=== PATIENT | male | born 1955 | race Caucasian/White ===

== ENCOUNTER 2022-11-25 08:38 | Outpatient (OUT) | payer MEDICARE, BC, SELFPAY | END 2022-11-25 08:39 | disposition home or self-care (01) | LOC: INF 08:38 | PROVIDERS: PCP Family Medicine; Visit Provider Internal Medicine Hematology & Oncology | DX: C67.9 Malignant neoplasm of bladder, unspecified (principal); D50.9 Iron deficiency anemia, unspecified; D75.839 Thrombocytosis, unspecified; D72.829 Elevated white blood cell count, unspecified | CPT/HCPCS: G0463 ==

== ENCOUNTER 2022-12-02 07:51 | Outpatient (OUT) | payer MEDICARE, BC, SELFPAY ==
[2022-12-02 10:59] LABS: Basophils Absolute Auto 0.1 10^3/uL (0.0-0.1); Basophils Percent Auto 0.4 % (0.2-2.0); Eosinophils Absolute Auto 0.3 10^3/uL (0.0-0.7); Eosinophils Percent Auto 2.4 % (0.9-7.0); Hematocrit 28.3 % (42.0-54.0); Hemoglobin 8.7 g/dL (14.0-18.0); Immature Granulocytes Abs Auto 0.22 10^3/uL (0.00-0.03); Immature Granulocytes Pct Auto 1.6 % (0.0-0.5); Lymphocytes Absolute Auto 0.9 10^3/uL (1.2-3.8); Lymphocytes Percent Auto 6.4 % (20.5-60.0); Mean Corpuscular HGB Conc 30.7 g/dL (29.9-35.2); Mean Corpuscular Hemoglobin 29.1 pg (25.9-34.0); Mean Corpuscular Volume 94.6 fL (80.0-94.0); Mean Platelet Volume 9.3 fL (9.5-13.5); Monocytes Absolute Auto 0.9 10^3/uL (0.3-0.8); Monocytes Percent Auto 6.5 % (1.7-12.0); Neutrophils Absolute Auto 11.6 10^3/uL (1.4-6.5); Neutrophils Percent Auto 82.7 % (43.0-75.0); Platelet Count 716 10^3/uL (150-450); Red Blood Count 2.99 10^6/uL (4.70-6.10); Red Cell Distribution Width 15.3 % (11.0-15.0)
[2022-12-02 11:29] LABS: Alanine Aminotransferase 53 U/L (16-63); Albumin Globulin Ratio 0.4; Albumin Level 2.1 g/dL (3.4-5.0); Alkaline Phosphatase 134 U/L (46-116); Anion Gap 16.4; Aspartate Amino Transferase 42 U/L (15-37); BUN Creatinine Ratio 13.4; Bilirubin Total 0.5 mg/dL (0.2-1.0); Carbon Dioxide 24.6 mmol/L (21.0-32.0); Chloride 97 mmol/L (98-107); Estimated GFR (African America 14 (>=60); Estimated GFR (Non-African Ame 11 (>=60); Globulin 5.2 g/dL; Glucose 136 mg/dL (74-106); Sodium 134 mmol/L (136-145); Total Protein 7.3 g/dL (6.4-8.2)
[2022-12-02 11:57] LABS: Free T4 0.87 ng/dL (0.76-1.46)
[2022-12-03 06:09] LABS: HBsAg Screen Negative (Negative); Hep B Core Ab, Tot Negative (Negative); Hep B Surface Ab Non Reactive (.)
[2022-12-03 14:49] VITALS: BMI 21.9
== END 2022-12-02 07:52 | disposition home or self-care (01) ==
LOC: INF 07:52
PROVIDERS: PCP Family Medicine; Visit Provider Internal Medicine Hematology & Oncology
DX: D72.829 Elevated white blood cell count, unspecified (principal); D75.839 Thrombocytosis, unspecified; D50.9 Iron deficiency anemia, unspecified; C67.9 Malignant neoplasm of bladder, unspecified
CPT/HCPCS: 36415; 80053; 84439; 84443; 85025; 86704; 86706; 87340

== ENCOUNTER 2022-12-03 09:59 | Outpatient (OUT) | payer MEDICARE, BC, SELFPAY | END 2022-12-03 10:00 | disposition home or self-care (01) | LOC: PST 10:01 | PROVIDERS: PCP Family Medicine | DX: Z01.818 Encounter for other preprocedural examination (principal); C34.90 Malignant neoplasm of unspecified part of unspecified bronchus or lung; Z79.01 Long term (current) use of anticoagulants | CPT/HCPCS: 80048; 85025; 85610; 85730 ==

== ENCOUNTER 2022-12-03 10:05 | Outpatient (OUT) | payer MEDICARE, BC, SELFPAY ==
--- NOTE | 2022-12-03 10:29 | XR_ITS ---
The [address] [address] Patient Name: JUDI RUFFIN MRN: [id number] date: 1955 Sex: M Assigned Patient Location: LAB Current Patient Location: LAB Accession/Order Number: [id number] Exam Date: 12/03/2022 10:35 Report Date: 12/03/2022 10:57 At the request of: CHRISS ONEILL Procedure: XR chest 2V EXAMINATION: XR chest 2V HISTORY: Cough, COPD , chronic shortness breath, lung cancer COMPARISON: XR chest 09/26/2022, CTA chest 11/17/2022 FINDINGS: LUNGS: Innumerable nodular opacities and large confluent areas throughout the lungs, greatest within the right lung base. VASCULATURE: No increased pulmonary vasculature. PLEURA: No pneumothorax or visible pleural effusion. CARDIAC: No cardiomegaly or cardiac silhouette abnormality. MEDIASTINUM: Prior sternotomy. No abnormal widening. BONES: No fracture or visible bone lesion. OTHER: Right jugular central venous catheter with tip at cavoatrial junction. IMPRESSION: 1. Extensive metastatic disease throughout the lungs. This is significantly increased compared to 09/26/2022. Stable to slight increase compared 11/17/2022 CTA chest (comparison is very limited due to differences in technique). 2. Overlying new, acute infiltrates cannot be excluded. Electronically authenticated by: MAIRA GOODWIN Date: 12/03/2022 10:57
== END 2022-12-03 10:06 | disposition home or self-care (01) ==
LOC: LAB 10:07
PROVIDERS: PCP Family Medicine; Visit Provider Internal Medicine Hematology & Oncology
DX: D72.829 Elevated white blood cell count, unspecified (principal); D75.839 Thrombocytosis, unspecified; D64.9 Anemia, unspecified; D50.9 Iron deficiency anemia, unspecified; C67.9 Malignant neoplasm of bladder, unspecified; C34.90 Malignant neoplasm of unspecified part of unspecified bronchus or lung
CPT/HCPCS: 71046

== ENCOUNTER 2022-12-05 07:38 | Day surgery (SDC) | payer MEDICARE, BC, SELFPAY ==
[2022-12-03 11:30] VITALS: BP 105/61; PULSE 98; RESP 20; TEMP 36.4; O2SAT 87; BMI 20.8
[2022-12-05 08:00] LABS: Anion Gap 11.4; BUN Creatinine Ratio 9.7; Calcium 8.5 mg/dL (8.5-10.1); Carbon Dioxide 30.3 mmol/L (21.0-32.0); Chloride 100 mmol/L (98-107); Estimated GFR (African America 19 (>=60); Estimated GFR (Non-African Ame 15 (>=60); Glucose 125 mg/dL (74-106); Potassium 4.7 mmol/L (3.5-5.1); Sodium 137 mmol/L (136-145)
[2022-12-05 08:11] VITALS: BMI 20.4
[2022-12-05 08:26] VITALS: BP 141/77; PULSE 97; RESP 20; TEMP 37.1; O2SAT 86
[2022-12-05] MEDS: 0.9 % SODIUM CHLORIDE 1,000 ML 75 ML IV (08:30)
[2022-12-05] MEDS: CEFAZOLIN SODIUM/DEXTROSE,ISO 2 GM/50 ML PIGGYBACK IV (08:31)
[2022-12-05] MEDS: HEPARIN SODIUM (PORCINE) PF LOCK FLUSH 500 UNIT/5 ML SYRINGE INJ (09:26)
[2022-12-05] MEDS: LIDOCAINE HCL 1%-EPINEPHRINE 1:100,000 10 ML MDV INJ (09:27)
--- NOTE | 2022-12-05 09:34 | XR_ITS ---
The [address] [address] Patient Name: JUDI RUFFIN MRN: [id number] date: 1955 Sex: M Assigned Patient Location: [facility] Current Patient Location: [facility] Accession/Order Number: [id number] Exam Date: 12/05/2022 09:45 Report Date: 12/05/2022 10:05 At the request of: AURA GOMEZ Procedure: XR chest 1V EXAMINATION: XR chest 1V HISTORY: port placement COMPARISON: XR chest 12/03/2022 FINDINGS: LUNGS: Innumerable nodules and confluent opacities throughout the lungs. VASCULATURE: No increased pulmonary vasculature. PLEURA: No pneumothorax, effusion, or pleural thickening. CARDIAC: No cardiomegaly or cardiac silhouette abnormality. MEDIASTINUM: No visible mass or adenopathy. BONES: No fracture or visible bone lesion. OTHER: Left Port-A-Cath placement with distal tip in superior vena cava. Stable right jugular central venous catheter. IMPRESSION: 1. No acute abnormality following left Port-A-Cath placement. 2. Diffuse bilateral pulmonary metastasis; not appreciably changed. Electronically authenticated by: MAIRA GOODWIN Date: 12/05/2022 10:05
[2022-12-05 09:38] VITALS: BP 132/71; PULSE 102; RESP 22; O2SAT 88
[2022-12-05 09:53] VITALS: BP 131/66; PULSE 92; RESP 20; O2SAT 85
--- NOTE | 2022-12-05 10:07 | PM.GSPRC ---
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 He has been recommended to undergo chemotherapy and therefore port placement was requested per medical oncology. The risks benefits options and potential complications of the procedure were discussed in detail with him and he agreed to proceed and consent was signed. Pre-op diagnosis: lung CA, need for long-term IV access Post-op diagnosis: same Procedure: port placement with fluoroscopy Anesthesia: MAC Surgeon: Samuel Bowie Procedure Summary: The patient was brought to the operating room and placed in the supine position. Under MAC the chest and neck was prepped and draped in usual sterile fashion. Patient had received IV antibiotics preoperatively. The patient was then placed in Trendelenburg position. The left lateral infraclavicular region was infiltrated with one percent lidocaine with epinephrine. The left subclavian vein was then accessed without difficulty. The guidewire was placed through the access needle and advanced into the superior vena cava under fluoroscopic guidance. Needle was withdrawn. A site on the right chest was then infiltrated with local anesthesia. A transverse incision was made sharply. The subcutaneous pocket for the port reservoir wasn't treated with electrocautery and blunt dissection. The port reservoir was then placed into this pocket and sutured to the underlying tissue with 3-0 Vicryl. Small incision was then made at the wire exit site. Using the tunneling device the catheter was brought from the chest incision out through the wire exit site. The catheter was then cut to appropriate length. The dilator and tear-away sheath were then placed over the guidewire advanced without difficulty. The guidewire was removed. The dilator was then also removed with the catheter placed within the sheath this sheath was gradually withdrawn with the catheter maintaining proper position. The port was then accessed and good blood return was noted. Fluoroscopy showed the catheter to be in good position. The port was then flushed with heparinized saline. The chest incision was then closed with interrupted subcutaneous sutures of 3-0 Vicryl and the skin was closed with subcuticular sutures of 4-0 Vicryl. The small incision at the wire exit site was also closed with 4-0 Vicryl. Sterile dressings were applied. The patient tolerated the procedure well and was transferred to the recovery area in stable condition where a chest x-ray will be obtained. Estimated blood loss (mL): 3 Specimens: none Complications: No
[2022-12-05 10:08] VITALS: BP 134/69; PULSE 98; RESP 22; O2SAT 85
[2022-12-05 10:40] VITALS: BP 138/78; PULSE 98; RESP 22; O2SAT 88
== END 2022-12-05 10:58 | disposition home or self-care (01) ==
PROVIDERS: Anesthesiology; PCP Family Medicine; Visit Provider Surgery
PROC: (CPT 36561; principal; 2022-12-05 08:30)
DX: C34.90 Malignant neoplasm of unspecified part of unspecified bronchus or lung (principal); Z79.82 Long term (current) use of aspirin; Z79.890 Hormone replacement therapy; Z79.899 Other long term (current) drug therapy; Z79.02 Long term (current) use of antithrombotics/antiplatelets; M19.90 Unspecified osteoarthritis, unspecified site; I10 Essential (primary) hypertension; E78.00 Pure hypercholesterolemia, unspecified; E07.9 Disorder of thyroid, unspecified; Z94.0 Kidney transplant status; Z94.83 Pancreas transplant status; Z95.1 Presence of aortocoronary bypass graft; Z85.51 Personal history of malignant neoplasm of bladder; E10.9 Type 1 diabetes mellitus without complications; Z95.5 Presence of coronary angioplasty implant and graft
CPT/HCPCS: 36561; 36415; 71045; 76000; 80048; C1778

== ENCOUNTER 2022-12-08 08:59 | Outpatient (OUT) | payer MEDICARE, BC, SELFPAY | END 2022-12-08 09:00 | disposition home or self-care (01) | LOC: INF 09:01 → HEMC 12-09 16:15 | PROVIDERS: PCP Family Medicine; Visit Provider Internal Medicine Hematology & Oncology | DX: Z53.9 Procedure and treatment not carried out, unspecified reason (principal) ==

== ENCOUNTER 2022-12-12 09:00 | Outpatient (RCR) | payer MEDICARE, BC, SELFPAY ==
--- NOTE | 2022-12-08 10:24 | PC.NURSE ---
0904: Pt. to [facility] via w/c accompanied by . Provided education to patient and patient's regarding chemotherapy/immunotherapy. Informed consent reviewed and questions addressed. Consent obtained. Reviewed the importance of good nutrition and hydration throughout therapy and what to do if problems or concerns arise. Emphasized the importance of monitoring pt. temp. and to call oncology on-call if temp. >100.4 F. Both relayed understanding. 1000: Teaching complete. Questions addressed. Pt. taken to Dr. Mayorga's office for scheduled appointment via w/c accompanied by .
[2022-12-10 09:00] VITALS: BP 115/69; PULSE 97; RESP 24; TEMP 37.2; O2SAT 87
[2022-12-10 09:33] LABS: Hematocrit 25.3 % (42.0-54.0); Hemoglobin 7.7 g/dL (14.0-18.0); Mean Corpuscular HGB Conc 30.4 g/dL (29.9-35.2); Mean Corpuscular Hemoglobin 28.6 pg (25.9-34.0); Mean Corpuscular Volume 94.1 fL (80.0-94.0); Mean Platelet Volume 9.3 fL (9.5-13.5); Platelet Count 645 10^3/uL (150-450); Red Blood Count 2.69 10^6/uL (4.70-6.10); Red Cell Distribution Width 15.7 % (11.0-15.0); White Blood Count 14.8 10^3/uL (4.0-11.0)
[2022-12-10 10:02] LABS: Eosinophils Absolute Manual 0.29 10^3/uL (0.00-0.70); Hypersegmented Neutrophils 1+; Lymphocytes Absolute Manual 1.33 10^3/uL (1.20-3.80); Monocytes Absolute Manual 0.44 10^3/uL (0.30-0.80); Segmented Neut Absolute Manual 12.72 10^3/uL (1.4-6.5)
[2022-12-10 10:03] LABS: Polychromasia 1+
[2022-12-10 10:04] LABS: Anisocytosis 1+
[2022-12-10 10:10] LABS: Alanine Aminotransferase 18 U/L (16-63); Albumin Globulin Ratio 0.4; Albumin Level 1.8 g/dL (3.4-5.0); Alkaline Phosphatase 189 U/L (46-116); Anion Gap 13.3; Aspartate Amino Transferase 42 U/L (15-37); Bilirubin Total 0.4 mg/dL (0.2-1.0); Calcium 8.4 mg/dL (8.5-10.1); Carbon Dioxide 29.6 mmol/L (21.0-32.0); Chloride 100 mmol/L (98-107); Estimated GFR (African America 18 (>=60); Estimated GFR (Non-African Ame 15 (>=60); Globulin 4.8 g/dL; Glucose 129 mg/dL (74-106); Potassium 4.9 mmol/L (3.5-5.1); Sodium 138 mmol/L (136-145); Total Protein 6.6 g/dL (6.4-8.2)
[2022-12-10] MEDS: DEXAMETHASONE SODIUM PHOSPHATE 10 MG in 0.9 % SODIUM CHLORIDE 100 ML 303 MG IV (10:23)
[2022-12-10 10:56] VITALS: BP 133/78; PULSE 97; RESP 24; TEMP 37.2; O2SAT 87
--- NOTE | 2022-12-10 11:04 | PC.NURSE ---
0900: Pt. to [facility] via w/c accompanied by . Pt. weight obtained. Pt. very weak and dyspneic with minimal exertion. Pt. with portable O2 intact at 5L nasal cannula. Assisted pt. to recliner. O2 87%. Rest of VSS. Using sterile technique, #19 gauge Donald needle used to access left ant. chest port. Flushes easily and able to aspirate blood easily for lab draw. Covered with Opsite dressing. Pt. tolerated with no c/o. IV 0.9%Ns initiated at KVO. Pt. given Ensure protein shake. 1017: Lab results called to Dr. Cardona. New orders obtained. Gives order to proceed with Pacev and Keytruda infusion. Pharmacy called and instructed to mix meds. 1023: IV Decadron initiated at this time. 1045: Decadron complete. Pt. without c/o. Denies needs. O2 maintained at 5L n/c. Awaiting Padcev from pharmacy.
--- NOTE | 2022-12-10 11:22 | PC.NURSE ---
Resting quietly with eyes closed. remains at bedside. Appears to be without s&s of distress.
--- NOTE | 2022-12-10 11:34 | PC.NURSE ---
Addendum entered by Quoc Koch 12/11/22 10:50: Dual verification performed with NASH Quiroz prior to administration. Original Note: 1132: IV Padcev initiated at this time. Instructed pt to relay any c/o increased dyspnea, itchy or scratchy throat, numbness or tingling or any other adverse reactions. Pt. and pt.'s both relay understanding.
[2022-12-10 11:38] VITALS: BP 138/80; PULSE 95; RESP 22; TEMP 37.1; O2SAT 85
--- NOTE | 2022-12-10 12:05 | PC.NURSE ---
Padcev infusion completed. Pt. tolerated without s&s of adverse reaction. VSS.
[2022-12-10] MEDS: PEMBROLIZUMAB 200 MG in 0.9 % SODIUM CHLORIDE 100 ML 216 MG IV (12:46)
--- NOTE | 2022-12-10 12:59 | PC.NURSE ---
Addendum entered by Quoc Koch 12/11/22 10:51: Dual verification performed with Iain Vogel RN prior to administration. Original Note: IV Keytruda initiated at this time. Instructed to pt. to inform this RN if any s&s of adverse reaction.
[2022-12-10 13:20] VITALS: BP 154/89; PULSE 94; RESP 20; TEMP 36.9; O2SAT 85
--- NOTE | 2022-12-10 13:37 | PC.NURSE ---
1320: IV Keytruda complete. Pt. feel slightly diaphoretic. VSS. Denies feeling bad . IV bolus of NS initiated at this time to flush line and provide hydration.
[2022-12-10] MEDS: HEPARIN SODIUM (PORCINE) PF LOCK FLUSH 500 UNIT/5 ML SYRINGE IV (13:45)
--- NOTE | 2022-12-10 15:12 | PC.NURSE ---
1345: Pt. relays feeling fine . Denies c/o pain, n/v or dyspnea. VSS. Port flushed with saline and heparin. Port de-accessed. Pt. tolerates without c/o. 1355: Pt. reminded of phone number to call after hours if any adverse reaction or symptoms occur at home. Reminded to keep close eye on temp. Both patient and relay understanding. Pt. taken to car via w/c and d/c'd to home with .
[2022-12-12 09:05] VITALS: BP 104/67; PULSE 97; RESP 22; TEMP 36.4; O2SAT 88
[2022-12-12] MEDS: 0.9 % SODIUM CHLORIDE 250 ML IV (09:24)
[2022-12-12 09:38] VITALS: BP 104/67; PULSE 97; RESP 22; TEMP 36.4; O2SAT 88
[2022-12-12 09:55] VITALS: BP 100/63; PULSE 87; RESP 22; TEMP 36.5; O2SAT 88
[2022-12-12 10:55] VITALS: BP 133/78; PULSE 86; PULSE 88; RESP 20; RESP 22; TEMP 36.6; O2SAT 88; O2SAT 91
[2022-12-12] MEDS: HEPARIN SODIUM (PORCINE) PF LOCK FLUSH 500 UNIT/5 ML SYRINGE IV (12:25)
== END 2022-12-12 23:59 | disposition home or self-care (01) ==
LOC: HEMC 09:00
PROVIDERS: PCP Family Medicine; Visit Provider Internal Medicine Hematology & Oncology
DX: D50.9 Iron deficiency anemia, unspecified (principal); C78.01 Secondary malignant neoplasm of right lung; C78.02 Secondary malignant neoplasm of left lung; D72.829 Elevated white blood cell count, unspecified; D75.839 Thrombocytosis, unspecified; C67.9 Malignant neoplasm of bladder, unspecified; Z51.11 Encounter for antineoplastic chemotherapy
CPT/HCPCS: 36415; 36430; 36591; 80053; 84443; 85007; 85025; 85027; 86850; 86900; 86901; 86920; 96374; 96375; 96409; 96411; 96413; 96417; J1100; J9177; J9271; P9016

== ENCOUNTER 2022-12-16 07:38 | Outpatient (RCR) | payer MEDICARE, BC, SELFPAY | END 2022-12-19 23:59 | disposition home or self-care (01) | LOC: HEMC 07:38 | PROVIDERS: PCP Family Medicine; Visit Provider Internal Medicine Hematology & Oncology | DX: C67.9 Malignant neoplasm of bladder, unspecified (principal); C78.02 Secondary malignant neoplasm of left lung; C78.01 Secondary malignant neoplasm of right lung | CPT/HCPCS: G0463 ==

== ENCOUNTER 2022-12-16 09:30 | Outpatient (OUT) | payer MEDICARE, BC, SELFPAY ==
[2022-12-16 11:14] LABS: Basophils Percent Auto 0.1 % (0.2-2.0); Eosinophils Absolute Auto 0.2 10^3/uL (0.0-0.7); Eosinophils Percent Auto 1.3 % (0.9-7.0); Hematocrit 30.3 % (42.0-54.0); Hemoglobin 9.2 g/dL (14.0-18.0); Immature Granulocytes Pct Auto 1.3 % (0.0-0.5); Lymphocytes Absolute Auto 0.7 10^3/uL (1.2-3.8); Lymphocytes Percent Auto 4.7 % (20.5-60.0); Mean Corpuscular HGB Conc 30.4 g/dL (29.9-35.2); Mean Corpuscular Hemoglobin 28.2 pg (25.9-34.0); Mean Corpuscular Volume 92.9 fL (80.0-94.0); Mean Platelet Volume 10.2 fL (9.5-13.5); Monocytes Absolute Auto 0.9 10^3/uL (0.3-0.8); Monocytes Percent Auto 5.7 % (1.7-12.0); Neutrophils Absolute Auto 13.7 10^3/uL (1.4-6.5); Neutrophils Percent Auto 86.9 % (43.0-75.0); Platelet Count 593 10^3/uL (150-450); Red Blood Count 3.26 10^6/uL (4.70-6.10); Red Cell Distribution Width 20.2 % (11.0-15.0); White Blood Count 15.7 10^3/uL (4.0-11.0)
[2022-12-16 11:41] LABS: Alanine Aminotransferase 65 U/L (16-63); Albumin Globulin Ratio 0.4; Albumin Level 1.9 g/dL (3.4-5.0); Alkaline Phosphatase 197 U/L (46-116); Aspartate Amino Transferase 58 U/L (15-37); BUN Creatinine Ratio 17.2; Bilirubin Total 0.4 mg/dL (0.2-1.0); Calcium 8.1 mg/dL (8.5-10.1); Carbon Dioxide 26.8 mmol/L (21.0-32.0); Chloride 101 mmol/L (98-107); Estimated GFR (African America 11 (>=60); Estimated GFR (Non-African Ame 9 (>=60); Globulin 4.6 g/dL; Glucose 142 mg/dL (74-106); Potassium 4.8 mmol/L (3.5-5.1); Sodium 139 mmol/L (136-145); Total Protein 6.5 g/dL (6.4-8.2)
== END 2022-12-16 09:31 | disposition home or self-care (01) ==
LOC: INF 12-31 12:48 → HEMC 12-31 12:50
PROVIDERS: PCP Family Medicine; Visit Provider Internal Medicine Hematology & Oncology
DX: C78.01 Secondary malignant neoplasm of right lung (principal); C78.02 Secondary malignant neoplasm of left lung; D78.02 Intraoperative hemorrhage and hematoma of the spleen complicating other procedure; D72.829 Elevated white blood cell count, unspecified; D75.839 Thrombocytosis, unspecified; D50.9 Iron deficiency anemia, unspecified; C67.9 Malignant neoplasm of bladder, unspecified; D64.9 Anemia, unspecified
CPT/HCPCS: 36415; 80053; 84443; 85025

== ENCOUNTER 2022-12-17 14:41 | Outpatient (OUT) | payer MEDICARE, BC, SELFPAY ==
--- NOTE | 2022-12-17 14:48 | XR_ITS ---
The [address] [address] Patient Name: JUDI RUFFIN MRN: [id number] date: 1955 Sex: M Assigned Patient Location: [facility] Current Patient Location: RAD Accession/Order Number: [id number] Exam Date: 12/17/2022 14:55 Report Date: 12/17/2022 15:17 At the request of: CHRISS ONEILL Procedure: XR chest 2V EXAM: XR chest 2V HISTORY: Malignant neoplasm of R L lung C78.01 C78.02, D72.829, D64.9 COMPARISON: 12/03/2022 TECHNIQUE: Upright PA and lateral chest x-ray FINDINGS: The heart is not enlarged and the vasculature is not distended. Multiple sternal wire sutures are present. A large bore central venous catheter is present on the right with the tip in the superior vena cava. There is been interval placement of an indwelling left subclavian central venous catheter with the tip in the superior vena cava. Numerous nodular masses of varying sizes are seen throughout the lungs indicating diffuse metastatic disease. A small right pleural effusion is noted. There is no evidence of a pneumothorax. No acute infiltrate is identified although a subtle superimposed infiltrate is difficult to entirely exclude. The osseous structures appear grossly intact in this study. IMPRESSION: No complication after interval placement of an indwelling catheter on the left side. Again seen is diffuse metastatic disease to the lung with a small right pleural effusion. No significant interval changes are otherwise identified. Electronically authenticated by: TEX RESTREPO Date: 12/17/2022 15:17
== END 2022-12-17 14:42 | disposition home or self-care (01) ==
PROVIDERS: PCP Family Medicine; Visit Provider Internal Medicine Hematology & Oncology
DX: C78.01 Secondary malignant neoplasm of right lung (principal); C78.02 Secondary malignant neoplasm of left lung; D72.829 Elevated white blood cell count, unspecified; D75.839 Thrombocytosis, unspecified; D50.9 Iron deficiency anemia, unspecified; C67.9 Malignant neoplasm of bladder, unspecified
CPT/HCPCS: 71046

== ENCOUNTER 2022-12-30 07:28 | Outpatient (OUT) | payer MEDICARE, BC, SELFPAY | END 2022-12-30 07:29 | disposition home or self-care (01) | LOC: INF 07:30 | PROVIDERS: PCP Family Medicine; Visit Provider Internal Medicine Hematology & Oncology | DX: C78.01 Secondary malignant neoplasm of right lung (principal); C78.02 Secondary malignant neoplasm of left lung; D72.829 Elevated white blood cell count, unspecified; D75.829 Heparin-induced thrombocytopenia, unspecified; D50.9 Iron deficiency anemia, unspecified; C67.9 Malignant neoplasm of bladder, unspecified | CPT/HCPCS: G0463 ==

== ENCOUNTER 2023-01-07 08:00 | Outpatient (RCR) | payer MEDICARE, BC, SELFPAY ==
[2022-12-24 09:00] VITALS: BP 108/66; PULSE 89; RESP 20; TEMP 37.2; O2SAT 94; BMI 20.4
[2022-12-24 09:32] LABS: Basophils Percent Auto 0.3 % (0.2-2.0); Eosinophils Absolute Auto 0.5 10^3/uL (0.0-0.7); Eosinophils Percent Auto 4.5 % (0.9-7.0); Hematocrit 33.5 % (42.0-54.0); Hemoglobin 10.3 g/dL (14.0-18.0); Immature Granulocytes Abs Auto 0.17 10^3/uL (0.00-0.03); Immature Granulocytes Pct Auto 1.5 % (0.0-0.5); Lymphocytes Absolute Auto 1.3 10^3/uL (1.2-3.8); Lymphocytes Percent Auto 11.1 % (20.5-60.0); Mean Corpuscular HGB Conc 30.7 g/dL (29.9-35.2); Mean Corpuscular Volume 94.4 fL (80.0-94.0); Mean Platelet Volume 9.6 fL (9.5-13.5); Monocytes Absolute Auto 0.9 10^3/uL (0.3-0.8); Monocytes Percent Auto 8.2 % (1.7-12.0); Neutrophils Absolute Auto 8.5 10^3/uL (1.4-6.5); Neutrophils Percent Auto 74.4 % (43.0-75.0); Platelet Count 502 10^3/uL (150-450); Red Cell Distribution Width 23.2 % (11.0-15.0); White Blood Count 11.4 10^3/uL (4.0-11.0)
--- NOTE | 2022-12-24 09:37 | PC.NURSE ---
Patient is here for day 8 of Padcev. He denies any SOB, nausea or vomiting, he denies any rash. He states he has been feeling good. Waiting for lab results before initiating chemotherapy.
[2022-12-24 09:51] LABS: Alanine Aminotransferase 53 U/L (16-63); Albumin Globulin Ratio 0.5; Alkaline Phosphatase 164 U/L (46-116); Anion Gap 15.2; Aspartate Amino Transferase 45 U/L (15-37); BUN Creatinine Ratio 13.3; Bilirubin Total 0.3 mg/dL (0.2-1.0); Carbon Dioxide 25.5 mmol/L (21.0-32.0); Chloride 105 mmol/L (98-107); Estimated GFR (African America 15 (>=60); Estimated GFR (Non-African Ame 12 (>=60); Globulin 3.9 g/dL; Glucose 120 mg/dL (74-106); Potassium 4.7 mmol/L (3.5-5.1); Sodium 141 mmol/L (136-145); Thyroid Stimulating Hormone 43.657 uIU/mL (0.358-3.740); Total Protein 5.9 g/dL (6.4-8.2)
[2022-12-24 10:21] LABS: Red Blood Count 3.55 10^6/uL (4.70-6.10)
[2022-12-24] MEDS: DEXAMETHASONE SODIUM PHOSPHATE 10 MG in 0.9 % SODIUM CHLORIDE 100 ML 303 MG IV (11:06)
[2022-12-24] MEDS: 0.9 % SODIUM CHLORIDE 250 ML 10 ML IV (11:17)
--- NOTE | 2022-12-24 11:48 | PC.NURSE ---
Padcev infusion verified with NASH Quiroz prior to administration.
--- NOTE | 2022-12-24 12:35 | PC.NURSE ---
Patient is here for Padcev, labs were drawn and called to Dr. Cardona and ordered to proceed with treatment. Patient is tolerating Padcev well without difficulty. Dr. Cardona ordered calcium gluconate as well after treatment. Patient denies any concerns or complaints at this time.
[2022-12-24] MEDS: SODIUM CHLORIDE 0.9% IV (12:41)
[2022-12-24] MEDS: CALCIUM GLUCONATE IV (12:41)
[2022-12-24] MEDS: HEPARIN SODIUM (PORCINE) PF LOCK FLUSH 500 UNIT/5 ML SYRINGE IV (13:59)
== END 2023-01-19 23:59 | disposition home or self-care (01) ==
LOC: INF 08:00
PROVIDERS: PCP Family Medicine; Visit Provider Internal Medicine Hematology & Oncology
DX: Z51.11 Encounter for antineoplastic chemotherapy (principal); C78.01 Secondary malignant neoplasm of right lung; C78.02 Secondary malignant neoplasm of left lung; D50.9 Iron deficiency anemia, unspecified; C67.9 Malignant neoplasm of bladder, unspecified; D72.829 Elevated white blood cell count, unspecified; D75.839 Thrombocytosis, unspecified; D64.9 Anemia, unspecified
CPT/HCPCS: 36415; 36591; 80053; 84443; 85025; 96367; 96368; 96411; 96413; 96415; J1100; J9177

== ENCOUNTER 2023-01-07 08:05 | Outpatient (RCR) | payer MEDICARE, BC, SELFPAY ==
[2023-01-07 08:25] LABS: Basophils Absolute Auto 0.1 10^3/uL (0.0-0.1); Basophils Percent Auto 0.8 % (0.2-2.0); Eosinophils Absolute Auto 0.2 10^3/uL (0.0-0.7); Eosinophils Percent Auto 2.6 % (0.9-7.0); Hematocrit 37.8 % (42.0-54.0); Hemoglobin 11.6 g/dL (14.0-18.0); Immature Granulocytes Abs Auto 0.13 10^3/uL (0.00-0.03); Immature Granulocytes Pct Auto 1.5 % (0.0-0.5); Lymphocytes Absolute Auto 1.6 10^3/uL (1.2-3.8); Lymphocytes Percent Auto 18.5 % (20.5-60.0); Mean Corpuscular HGB Conc 30.7 g/dL (29.9-35.2); Mean Corpuscular Hemoglobin 29.7 pg (25.9-34.0); Mean Corpuscular Volume 96.9 fL (80.0-94.0); Mean Platelet Volume 9.7 fL (9.5-13.5); Monocytes Absolute Auto 0.8 10^3/uL (0.3-0.8); Monocytes Percent Auto 9.6 % (1.7-12.0); Neutrophils Absolute Auto 5.8 10^3/uL (1.4-6.5); Platelet Count 300 10^3/uL (150-450); Red Cell Distribution Width 23.5 % (11.0-15.0); White Blood Count 8.7 10^3/uL (4.0-11.0)
[2023-01-07 09:00] VITALS: BP 124/77; PULSE 96; RESP 20; TEMP 36.8; O2SAT 91
[2023-01-07 09:24] LABS: Alanine Aminotransferase 75 U/L (16-63); Albumin Globulin Ratio 0.6; Albumin Level 2.1 g/dL (3.4-5.0); Alkaline Phosphatase 154 U/L (46-116); Anion Gap 17.2; Aspartate Amino Transferase 56 U/L (15-37); BUN Creatinine Ratio 16.2; Bilirubin Total 0.3 mg/dL (0.2-1.0); Calcium 7.4 mg/dL (8.5-10.1); Carbon Dioxide 23.8 mmol/L (21.0-32.0); Chloride 105 mmol/L (98-107); Estimated GFR (African America 20 (>=60); Estimated GFR (Non-African Ame 16 (>=60); Globulin 3.6 g/dL; Glucose 139 mg/dL (74-106); Sodium 142 mmol/L (136-145); Total Protein 5.7 g/dL (6.4-8.2)
--- NOTE | 2023-01-07 09:44 | PC.NURSE ---
0900: Pt. to [facility] via w/c accompanied by . Pt. with portable O2 intact. Wt. obtained. Assisted pt. to chair. Pt. denies c/o pain, n/v or dyspnea at this time. O2 to wall unit at 4L n/c. VSS. Using sterile technique. left ant. chest port accessed using #20gauge Donald needle. Flushes easily, able to aspirate blood easily. Secured with opsite. Pt. tolerated without c/o. Warm blankets applied. remains at chairside. 0940: Breakfast tray ordered. Awaiting lab results.
--- NOTE | 2023-01-07 10:01 | PC.NURSE ---
Labs resulted, Dr. Cardona notified.
--- NOTE | 2023-01-07 10:13 | PC.NURSE ---
Spoke with Dr. Cardona regarding labs and weight change. Instructed to administer Padcev 75mg. No further changes made. OK to proceed with chemo. Pharmacy notified.
[2023-01-07] MEDS: DEXAMETHASONE SODIUM PHOSPHATE 10 MG in 0.9 % SODIUM CHLORIDE 100 ML 303 MG IV (10:29)
[2023-01-07] MEDS: 0.9 % SODIUM CHLORIDE 250 ML 10 ML IV (10:30)
--- NOTE | 2023-01-07 11:11 | PC.NURSE ---
Iv Padcev 75mg initiated at this time after double checked with NASH Quiroz. Pt. drinking fluids. Repositioned for comfort.
--- NOTE | 2023-01-07 11:21 | PC.NURSE ---
1056: IV Padcev 75mg initiated at this time. Repositioned for comfort. Fluids provided.
[2023-01-07 11:30] VITALS: PULSE 89; RESP 18; TEMP 36.7; O2SAT 90
[2023-01-07] MEDS: PEMBROLIZUMAB 200 MG in 0.9 % SODIUM CHLORIDE 100 ML 216 MG IV (11:38)
--- NOTE | 2023-01-07 11:52 | PC.NURSE ---
1130: IV Padcev completed at this time without s&s of adverse reaction. VSS. 1138: IV Ketruda 200mg initiated at this time. Pt. repositioned for comfort. Denies needs.
[2023-01-07] MEDS: HEPARIN SODIUM (PORCINE) PF LOCK FLUSH 500 UNIT/5 ML SYRINGE IV (12:23)
[2023-01-07 12:28] VITALS: BP 158/88; PULSE 85; RESP 20; TEMP 36.8; O2SAT 90
--- NOTE | 2023-01-07 12:30 | PC.NURSE ---
1220: Treatment completed at this time without s&s of adverse reaction. VSS. Port flushed with Heparin 500units. Port de-accessed. Pt. tolerated without c/o. 1226: Pt. d/c'd via w/c and taken to car with portable o2 intact. Pt. d/c'd to home with .
== END 2023-02-12 16:00 | disposition home or self-care (01) ==
LOC: HEMC 08:05
PROVIDERS: PCP Family Medicine; Visit Provider Internal Medicine Hematology & Oncology
DX: Z51.11 Encounter for antineoplastic chemotherapy (principal); C78.01 Secondary malignant neoplasm of right lung; C78.02 Secondary malignant neoplasm of left lung; D75.839 Thrombocytosis, unspecified; D50.9 Iron deficiency anemia, unspecified; C67.9 Malignant neoplasm of bladder, unspecified
CPT/HCPCS: 36415; 80053; 84443; 85025; 96365; 96366; 96413; 96417; 96523; G0463; J1100; J9177; J9271

== ENCOUNTER 2023-01-19 12:21 | Outpatient (OUT) | payer MEDICARE, BC, SELFPAY ==
[2023-01-13] MEDS: HEPARIN SODIUM (PORCINE) PF LOCK FLUSH 500 UNIT/5 ML SYRINGE IV (09:15)
[2023-01-13 09:37] LABS: Basophils Percent Auto 0.4 % (0.2-2.0); Eosinophils Absolute Auto 0.3 10^3/uL (0.0-0.7); Eosinophils Percent Auto 3.5 % (0.9-7.0); Hematocrit 38.3 % (42.0-54.0); Hemoglobin 11.7 g/dL (14.0-18.0); Immature Granulocytes Abs Auto 0.07 10^3/uL (0.00-0.03); Immature Granulocytes Pct Auto 0.8 % (0.0-0.5); Lymphocytes Absolute Auto 1.5 10^3/uL (1.2-3.8); Lymphocytes Percent Auto 16.5 % (20.5-60.0); Mean Corpuscular HGB Conc 30.5 g/dL (29.9-35.2); Mean Corpuscular Hemoglobin 29.7 pg (25.9-34.0); Mean Corpuscular Volume 97.2 fL (80.0-94.0); Mean Platelet Volume 10.3 fL (9.5-13.5); Monocytes Absolute Auto 0.9 10^3/uL (0.3-0.8); Monocytes Percent Auto 10.1 % (1.7-12.0); Neutrophils Absolute Auto 6.2 10^3/uL (1.4-6.5); Neutrophils Percent Auto 68.7 % (43.0-75.0); Platelet Count 350 10^3/uL (150-450); Red Blood Count 3.94 10^6/uL (4.70-6.10)
[2023-01-13 09:56] LABS: Red Cell Distribution Width 22.7 % (11.0-15.0)
== END 2023-01-19 12:22 | disposition home or self-care (01) ==
LOC: HEMC 12:21
PROVIDERS: PCP Family Medicine; Visit Provider Internal Medicine Hematology & Oncology
DX: C78.01 Secondary malignant neoplasm of right lung (principal); C78.02 Secondary malignant neoplasm of left lung; D72.829 Elevated white blood cell count, unspecified; D75.839 Thrombocytosis, unspecified; D50.9 Iron deficiency anemia, unspecified; C67.9 Malignant neoplasm of bladder, unspecified
CPT/HCPCS: 36415; 36591; 80053; 84443; 85025; G0463

== ENCOUNTER 2023-01-21 08:01 | Outpatient (RCR) | payer MEDICARE, BC, SELFPAY ==
[2023-01-21 08:42] LABS: Basophils Percent Auto 0.4 % (0.2-2.0); Eosinophils Absolute Auto 0.3 10^3/uL (0.0-0.7); Eosinophils Percent Auto 2.6 % (0.9-7.0); Hematocrit 37.2 % (42.0-54.0); Hemoglobin 11.3 g/dL (14.0-18.0); Immature Granulocytes Abs Auto 0.05 10^3/uL (0.00-0.03); Immature Granulocytes Pct Auto 0.5 % (0.0-0.5); Lymphocytes Absolute Auto 1.8 10^3/uL (1.2-3.8); Lymphocytes Percent Auto 18.8 % (20.5-60.0); Mean Corpuscular HGB Conc 30.4 g/dL (29.9-35.2); Mean Corpuscular Hemoglobin 29.7 pg (25.9-34.0); Mean Corpuscular Volume 97.9 fL (80.0-94.0); Mean Platelet Volume 9.8 fL (9.5-13.5); Monocytes Percent Auto 10.4 % (1.7-12.0); Neutrophils Absolute Auto 6.4 10^3/uL (1.4-6.5); Neutrophils Percent Auto 67.3 % (43.0-75.0); Platelet Count 413 10^3/uL (150-450); White Blood Count 9.5 10^3/uL (4.0-11.0)
[2023-01-21 09:00] VITALS: BP 124/73; PULSE 95; RESP 24; TEMP 36.9; O2SAT 91
--- NOTE | 2023-01-21 09:00 | PC.NURSE ---
Pt. to [facility] @ 0810 for blood draw via port a cath prior to chemo infusion. Using sterile technique, left ant. chest port accessed using 19 gauge Donald needle. Flushes easily, but difficulty with aspirating blood. Repositioned needle under skin. Attempt made multiple times with several saline flushes, unable to aspirate blood. Port de-accessed. Using sterile technique, 19 gauge Donald needle used to re-access port. Flushes easily without edema. Able to aspirate blood easily. Blood drawn for labs. Port remains accessed. Covered with large opsite and secured. 0825: Pt. d/c'd via w/c to PCP appointment. 0900: Pt returns to [facility]. weight obtained. Assisted pt. to recliner. VSS. Pt. on O2 @ 5L n/c. IV 0.9%NS initiated at KVO. 0920: Lab results and wt. change phoned to Dr. Cardona. New orders obtained. Marcelo Burr [facility] phoned and notified of Padcev dose reduction of 25% per Dr. Cardona order.
[2023-01-21 09:02] LABS: Alanine Aminotransferase 46 U/L (16-63); Albumin Globulin Ratio 0.6; Albumin Level 2.2 g/dL (3.4-5.0); Alkaline Phosphatase 154 U/L (46-116); Anion Gap 7.9; Aspartate Amino Transferase 41 U/L (15-37); BUN Creatinine Ratio 12.9; Bilirubin Total 0.4 mg/dL (0.2-1.0); Calcium 7.5 mg/dL (8.5-10.1); Chloride 101 mmol/L (98-107); Estimated GFR (African America 20 (>=60); Estimated GFR (Non-African Ame 16 (>=60); Globulin 3.5 g/dL; Glucose 106 mg/dL (74-106); Potassium 3.9 mmol/L (3.5-5.1); Sodium 137 mmol/L (136-145); Total Protein 5.7 g/dL (6.4-8.2)
[2023-01-21] MEDS: DEXAMETHASONE SODIUM PHOSPHATE 10 MG in 0.9 % SODIUM CHLORIDE 100 ML 212 MG IV (10:12)
--- NOTE | 2023-01-21 10:12 | PC.NURSE ---
IV decadron initiated at this time. Pt. given milkshake and warm blanket.
[2023-01-21] MEDS: 0.9 % SODIUM CHLORIDE 250 ML 20 ML IV (10:16)
[2023-01-21 11:35] VITALS: BP 124/73; PULSE 100; RESP 24; TEMP 36.6; O2SAT 90
--- NOTE | 2023-01-21 11:35 | PC.NURSE ---
IV Padcev completed without s&s of adverse reaction. Port a cath flushed with saline and Heparin. Port de-accessed. Covered with sterile 2x2. Reminded pt. and to observe for delayed reaction and fever. Both relay understanding. Pt. taken to x-ray via w/c. To be d/c'd to home with after.
--- NOTE | 2023-01-21 11:53 | PC.NURSE ---
IV Decadron infused. Pt. given milk shake and warm blanket. IV Padcev initiated at this time after independent check with Marcelo Burr, Pharmacist.
--- NOTE | 2023-01-21 11:53 | PC.NURSE ---
Decadron infused. IV Padcev initiated at this time. Double checked with Marcelo Burr RPh. Pt. denies needs or c/o.
[2023-01-21 12:02] LABS: Free T4 0.87 ng/dL (0.76-1.46)
== END 2023-02-12 15:57 | disposition home or self-care (01) ==
LOC: INF 08:01
PROVIDERS: PCP Family Medicine; Visit Provider Internal Medicine Hematology & Oncology
DX: Z51.12 Encounter for antineoplastic immunotherapy (principal); C78.01 Secondary malignant neoplasm of right lung; C78.02 Secondary malignant neoplasm of left lung; D72.829 Elevated white blood cell count, unspecified; D75.839 Thrombocytosis, unspecified; D50.9 Iron deficiency anemia, unspecified; C67.9 Malignant neoplasm of bladder, unspecified; D64.9 Anemia, unspecified
CPT/HCPCS: 36415; 36591; 71046; 80053; 84439; 84443; 85025; 96367; 96413; 96417; 99211; J9177

== ENCOUNTER 2023-01-21 11:25 | Outpatient (OUT) | payer MEDICARE, BC, SELFPAY ==
--- NOTE | 2023-01-21 11:55 | XR_ITS ---
The [address] [address] Patient Name: JUDI RUFFIN MRN: [id number] date: 1955 Sex: M Assigned Patient Location: RAD Current Patient Location: RAD Accession/Order Number: [id number] Exam Date: 01/21/2023 11:45 Report Date: 01/21/2023 12:08 At the request of: CHRISS ONEILL Procedure: XR chest 2V EXAM: XR chest 2V HISTORY: Malignant Neoplasm Of Lung C78.01, Malignant Bladder Cancer COMPARISON: 12/17/2022 TECHNIQUE: 2 views FINDINGS: Multifocal patchy opacities. No pneumothorax. Trace bilateral pleural effusions. Stable cardiac silhouette. Stable right IJ venous catheter and left-sided Mediport. XR/XR chest 2V IMPRESSION: Multifocal metastasis. No significant change from prior exam. Electronically authenticated by: SAÚL CROCKETT Date: 01/21/2023 12:08
== END 2023-01-21 11:26 | disposition home or self-care (01) ==
LOC: RAD 11:25
PROVIDERS: PCP Family Medicine; Visit Provider Internal Medicine Hematology & Oncology
DX: C78.01 Secondary malignant neoplasm of right lung (principal); C78.02 Secondary malignant neoplasm of left lung; D72.829 Elevated white blood cell count, unspecified; D75.839 Thrombocytosis, unspecified; D50.9 Iron deficiency anemia, unspecified; C67.9 Malignant neoplasm of bladder, unspecified; D64.9 Anemia, unspecified; Z51.12 Encounter for antineoplastic immunotherapy
CPT/HCPCS: 71046

== ENCOUNTER 2023-02-03 08:03 | Outpatient (OUT) | payer MEDICARE, BC, SELFPAY | END 2023-02-03 08:04 | disposition home or self-care (01) | LOC: INF 08:04 | PROVIDERS: PCP Family Medicine; Visit Provider Internal Medicine Hematology & Oncology | DX: Z53.9 Procedure and treatment not carried out, unspecified reason (principal) ==